=== PATIENT | male | born 1950 | race Caucasian/White ===

== ENCOUNTER 2025-03-05 09:47 | Outpatient (CLI) | payer MEDICARE | END 2025-03-05 09:48 | disposition home or self-care (01) | LOC: CSHSLEEP 09:47 | PROVIDERS: ATTEND Internal Medicine Cardiovascular Disease | DX: R06.3 Periodic breathing (principal); E66.9 Obesity, unspecified; Z68.31 Body mass index [BMI] 31.0-31.9, adult; I11.9 Hypertensive heart disease without heart failure | CPT/HCPCS: 95811 ==